=== PATIENT | female | born 1995 | race Two or more races ===

== ENCOUNTER → 2024-07-27 | Outpatient (CLI) | payer MEDICAID, SELFPAY ==
--- NOTE | 2024-07-27 09:30 | XR_ITS ---
Examination: MRI lumbar spine without contrast Date and time of exam: July 27, 2024 0931 hrs. Indications: Low back pain radiating down the left leg numbness and paresthesias in the left leg 3 months Technique: Multiple MRI axial and sagittal sections lumbar spine. Sagittal T2-weighted images, TR 3500, TE 118 T1 weighted transverse sections, TR 688 T8.5, T2-weighted sagittal sections T1 weighted sagittal sections TR 621, TE 30 T2 axial sections, TR 4, 190, TE 84. Findings: Satisfactory alignment lumbar vertebral bodies on the lateral view Normal marrow signal No lumbar disc narrowing with disc desiccation No spondylolisthesis Axial images demonstrate no focal lumbar disc protrusion Impression: Satisfactory alignment lumbar vertebral bodies No lumbar fracture No acquired spinal stenosis
== END | disposition home or self-care (01) ==
LOC: SMRI 09:07
PROVIDERS: PCP Physician Assistant; Referring Provider Physician Assistant; Visit Provider Physician Assistant
DX: M54.9 Dorsalgia, unspecified (principal)
CPT/HCPCS: 72148

== ENCOUNTER → 2024-10-09 | Outpatient (CLI) | payer MEDICAID, SELFPAY ==
--- NOTE | 2024-10-09 15:13 | XR_ITS ---
Examination: Cervical spine 4 views TECHNIQUE: AP, lateral, swimmer's lateral, coned AP odontoid 4 views Exam date and time: October 09, 2024 1531 hours INDICATIONS: Neck pain beginning 4 months ago. FINDINGS: Reversal normal cervical lordosis. No cervical fracture No cervical disc narrowing Intact odontoid IMPRESSION: No cervical fracture or significant cervical disc narrowing
--- NOTE | 2024-10-09 15:13 | XR_ITS ---
Examination: Lumbar spine 3 views Technique one AP lateral coned lateral lower lumbar spine 3 views Exam date and time: October 09, 2024 1522 hours INDICATIONS: Low back pain beginning 4 months ago. FINDINGS: Satisfactory alignment lumbar vertebral bodies No lumbar fracture Mild distention posteriorly L5-S1 IMPRESSION: Mild disc narrowing L5-S1 posteriorly
--- NOTE | 2024-10-09 15:13 | XR_ITS ---
Examination: Bilateral knees, standing AP single view Technique: Standing AP bilateral knees, standing AP single view Exam date and time: October 09, 2024 1522 hours INDICATIONS: Bilateral knee pain one month. FINDINGS: Mild osteopenia Partial visualization intramedullary left femoral beth No knee fracture or dislocation Mild narrowing medial joint spaces IMPRESSION: Mild narrowing medial joint spaces
--- NOTE | 2024-10-09 15:13 | XR_ITS ---
Examination: Left femur 2 views Technique one AP lateral 2 views Exam date and time: March 15, 2025 1542 hours INDICATIONS: Left femur pain this week, femur surgery 2021 FINDINGS: Healed fracture proximal femoral shaft Orthopedic hardware satisfactory position No fracture There is erosion involving the cortex of the proximal lateral femoral shaft, osteomyelitis would be included in the differential IMPRESSION: Recommend CT examination femur without contrast follow-up to exclude osteomyelitis proximal lateral shaft of the femur
== END | disposition home or self-care (01) ==
PROVIDERS: PCP Physician Assistant; Referring Provider Nurse Practitioner Family; Visit Provider Nurse Practitioner Family
DX: M54.2 Cervicalgia (principal); M89.8X5 Other specified disorders of bone, thigh; M25.862 Other specified joint disorders, left knee; M25.861 Other specified joint disorders, right knee; M48.07 Spinal stenosis, lumbosacral region
CPT/HCPCS: 72040; 72100; 73552; 73565

== ENCOUNTER → 2024-10-25 | Outpatient (CLI) | payer MEDICAID, SELFPAY ==
--- NOTE | 2024-10-25 09:45 | XR_ITS ---
Examination: Abdomen sonogram, Limited Date and time of exam: October 25, 2024 0827 hours INDICATIONS: Elevated liver function tests on laboratory examination August 2024 Technique: Real-time busby scale transabdominal sonographic images of the upper abdomen obtained. Findings: Negative for gallstones Gallbladder wall 0.3 cm Common bile duct 0.3 cm Pancreatic head 2.0 cm Liver 16.7 cm fatty infiltration no focal liver lesions Normal hepatopedal portal venous flow Patent IVC IMPRESSION: Normal gallbladder Mild hepatomegaly fatty liver
== END | disposition home or self-care (01) ==
LOC: CDIM 08:18
PROVIDERS: Referring Provider Physician Assistant; Visit Provider Physician Assistant
DX: K76.0 Fatty (change of) liver, not elsewhere classified (principal)
CPT/HCPCS: 76705

== ENCOUNTER → 2025-05-14 | Outpatient (CLI) | payer MEDICAID, SELFPAY ==
--- NOTE | 2025-05-14 15:30 | XR_ITS ---
EXAMINATION: Ultrasound liver elastography Date and time: May 14, 2025, 1631 hours INDICATIONS: Elevated liver enzymes and laboratory examination performed 1 week ago FINDINGS: Liver 16.5 cm with fatty infiltration Normal portal venous flow Patent hepatic veins Tissue stiffness average 0.9 m/s, normal IMPRESSION: Tissue stiffness average 0.9 m/s, normal
== END | disposition home or self-care (01) ==
LOC: CDIM 16:19
PROVIDERS: Referring Provider Physician Assistant; Visit Provider Physician Assistant
DX: K76.0 Fatty (change of) liver, not elsewhere classified (principal)
CPT/HCPCS: 76981